=== PATIENT | female | born 1995 | race Caucasian/White ===

== ENCOUNTER → 2017-12-25 | Day surgery (SDC) | payer OTHER ==
[~2017-12-25] MED LIST: BIOTIN1 M1 PO; COLAGENO PO; MIRALAX17 GM PO; NEURONTIN300 MG PO; PERCOCET 5-3251 EACH PO
== END | disposition home or self-care (01) ==
LOC: ADM 12-19 09:00 → CIR.AMB 05:50
DX: K42.0 Umbilical hernia with obstruction, without gangrene (principal)